=== PATIENT | male | born 1955 | race Caucasian/White ===

== ENCOUNTER 2022-11-01 11:21 | Emergency (ER) | payer SELFPAY ==
[2022-11-01 11:27] VITALS: PULSE 86
[2022-11-01 12:13] LABS: ANION GAP 7.2 meq/L (7-15)
[2022-11-01 13:01] VITALS: BP 122/77
== END 2022-11-01 12:40 | disposition home or self-care (01) ==
LOC: LL.ED 11:21
DX: T59.811A Toxic effect of smoke, accidental (unintentional), initial encounter (principal); D53.9 Nutritional anemia, unspecified; I10 Essential (primary) hypertension; Z87.891 Personal history of nicotine dependence
CPT/HCPCS: 36415; 71046; 80053; 85025; 99285

== ENCOUNTER 2023-03-19 08:49 | Emergency (ER) | payer MEDICARE, MEDICAID ==
[2023-03-19] MEDS ORDERED: Sodium Chloride 0.9% 10 ML Syringe FLUSH PRN (09:04)
[2023-03-19 09:23] LABS: BILIRUBIN,URINE NEGATIVE (NEGATIVE); COLOR,URINE YELLOW; GLUCOSE,URINE NEGATIVE (NEGATIVE); KETONES,URINE NEGATIVE (NEGATIVE); LEUKOCYTE ESTERASE,URINE SMALL (NEGATIVE); NITRITE,URINE NEGATIVE (NEGATIVE); OCCULT BLOOD,URINE NEGATIVE (NEGATIVE); PROTEIN,URINE NEGATIVE (NEGATIVE); UROBILINOGEN,URINE 0.2 E.U./dL (0.2-1.0)
[2023-03-19] MEDS ORDERED: Iopamidol 612 MG/ML 100 ML Bottle IVPUSH ONE (09:28)
[2023-03-19 09:32] LABS: APPEARANCE,URINE SLIGHTLY CLOUDY
[2023-03-19 09:33] LABS: BACTERIA,URINE NOT SEEN /HPF (NONE TO FEW); EPITHELIAL CELLS,URINE NOT SEEN /LPF; RBC,URINE 0-5 /HPF
[2023-03-19 09:35] LABS: CARBON DIOXIDE,CO2 28.3 mmol/L (21.0-32.0)
[2023-03-19 09:35] LABS: BASOPHILS ABSOLUTE AUTO 0.01 K/uL (0.00-0.20); EOSINOPHILS ABSOLUTE AUTO 0.03 K/uL (0.00-0.50); EOSINOPHILS PERCENT AUTO 0.1 % (0.0-5.0); HEMATOCRIT 39.1 % (39.0-49.0); HEMOGLOBIN 12.6 g/dL (13.1-16.8); LYMPHOCYTES ABSOLUTE AUTO 0.58 K/uL (0.50-3.50); LYMPHOCYTES PERCENT AUTO 2.7 % (10.0-50.0); MEAN CORPUSCULAR HEMOGLOBIN 23.6 pg (28.2-33.3); MEAN CORPUSCULAR HGB CONC 32.2 g/dL (31.7-36.0); MEAN CORPUSCULAR VOLUME 73.2 fL (84.0-98.0); MONOCYTES ABSOLUTE AUTO 1.01 K/uL (0.00-1.00); MONOCYTES PERCENT AUTO 4.7 % (2.0-14.0); NEUTROPHILS ABSOLUTE AUTO 19.77 K/uL (1.40-7.00); NEUTROPHILS PERCENT AUTO 92.5 % (45.0-80.0); PLATELET COUNT,PLT 379 K/uL (150-350); RED BLOOD CELL COUNT 5.34 M/uL (4.33-5.41); RED CELL DISTRIBUTION WIDTH 15.2 % (11.2-14.1); WHITE BLOOD CELL COUNT,WBC 21.4 K/uL (4.0-10.2)
[2023-03-19 09:36] LABS: ALBUMIN 3.2 g/dL (3.4-5.0); ANION GAP 9.7 meq/L (7-15); BILIRUBIN TOTAL 0.4 mg/dL (0.2-1.0); CALCIUM 8.9 mg/dL (8.5-10.1); CREATININE 1.25 mg/dL (0.51-1.17); EST CRCL DRUG DOSING (CG) 49.67 mL/min; PROTEIN TOTAL,TP 7.6 g/dL (6.4-8.2)
[2023-03-19] MEDS ORDERED: Piperacillin/Tazobactam 3.375 GM in Sodium Chloride 0.9% 100 ML IV ONE (10:34)
== END 2023-03-19 11:23 ==
LOC: LL.ED 08:49
DX: T18.5XXA Foreign body in anus and rectum, initial encounter (principal); R10.33 Periumbilical pain; I10 Essential (primary) hypertension; Z87.891 Personal history of nicotine dependence
CPT/HCPCS: 36415; 74177; 80053; 81001; 83605; 85025; 87086; 96365; 99284; 99285-25; J2543; J3490; Q9967

== ENCOUNTER 2024-05-30 09:28 | Day surgery (SDC) | payer MEDICARE, MEDICAID ==
[~2024-05-30 09:28] MED LIST: Midazolam 1 MG/ML 2 ML SDV ONE; Propofol 200 MG/20 ML SDV ONE
[2024-05-30] MEDS ORDERED: Sodium Chloride 0.9% 10 ML Syringe FLUSH PRN (10:30)
[2024-05-30] MEDS: Lactated Ringers 1,000 ML IV SCH (11:16)
== END 2024-05-30 13:05 | disposition home or self-care (01) ==
LOC: LL.SDS 09:28 → MERGE 10:45 → LL.SDS 13:05
PROVIDERS: ATTEND Surgery
DX: C18.4 Malignant neoplasm of transverse colon (principal); K57.30 Diverticulosis of large intestine without perforation or abscess without bleeding; K21.9 Gastro-esophageal reflux disease without esophagitis; I12.9 Hypertensive chronic kidney disease with stage 1 through stage 4 chronic kidney disease, or unspecified chronic kidney disease; N18.2 Chronic kidney disease, stage 2 (mild); E78.2 Mixed hyperlipidemia; N40.1 Benign prostatic hyperplasia with lower urinary tract symptoms; R63.4 Abnormal weight loss
CPT/HCPCS: 00811 ×2; 45380; 45381; 88305; 88341; 88342; J2250; J2704; J7120